=== PATIENT | male | born 1965 | race Caucasian/White ===

== ENCOUNTER 2020-02-08 12:23 | Emergency (ER) | payer MEDICAID, SELFPAY ==
[2020-02-08 12:25] VITALS: BP 137/86; PULSE 84; RESP 19; TEMP 36.4; O2SAT 98; BMI 37.5
--- NOTE | 2020-02-08 14:30 | ED.GENADULT ---
HPI - General Adult General Chief complaint: Extremity Problem Stated complaint: finger tips swollen and lt foot Time Seen by Provider: 02/08/20 14:30 Source: patient Mode of arrival: ambulatory Limitations: no limitations History of Present Illness MD complaint: bilateral finger pain,deformity, bump in left foot Onset (ago): month(s) (few months) Location: left, right, upper extremity and lower extremity Radiation: non-radiation Severity: moderate Quality: aching Pain Consistency: constant Relieving factors: none Exacerbating factors: none Associated symptoms: denies other symptoms Treatments prior to arrival: none Related Data Previous Rx's Medication Instructions Recorded cyclobenzaprine 10 mg PO TID PRN #14 tab 02/08/20 ibuprofen 600 mg PO Q6H PRN #30 tab 02/08/20 prednisone 40 mg PO DAILY 5 Days #10 tab 02/08/20 Allergies Allergy/AdvReac Type Severity Reaction Status Date / Time amoxicillin [AMOXICILLIN] Allergy Unknown HIVES Unverified 12/22/19 15:26 Review of Systems Review of Systems: Constitutional : No Fever, No Chills ENT/Mouth : No sore throat, No Rhinorrhea Eyes: No Eye Pain, No Swelling, No Redness Cardiovascular : No Chest Pain, No SOB Respiratory : No Cough, No Sputum Gastrointestinal : No Nausea, No Vomiting, No Diarrhea, No abdominal Pain Genitourinary : No Dysuria, No Hematuria Musculoskeletal : pos joint pain, No Myalgias, No Joint Swelling, pain swelling bottom of left foot Skin : No Skin Lesions, no skin rash Neuro : No Weakness, No Numbness, No Headache PMFSH Past Medical History Medical History HTN (hypertension) PTSD (post-traumatic stress disorder) Social History Social History (Updated 02/08/20 @ 14:31 by Anju Kevin DO) Use of substances other than those prescribed or required for medical reasons: No Advance Directives: Yes Advance Directives Information Provided: Yes Advance Directives on File: No Physical Exam Vital Signs: Vital Signs: Vital Signs Temp Pulse Resp BP Pulse Ox 02/08/20 12:25 97.6 F 84 19 137/86 98 Body Mass Index 37.5 Appearance: Alert. Oriented X3. No acute distress. Eyes: Pupils equal, round and reactive to light. ENT: Pharynx normal. Neck: Normal inspection. Neck supple. CVS: Normal heart rate and rhythm. Pulses normal. Respiratory: No respiratory distress. Breath sounds normal. Abdomen: Soft and nontender. Skin: Skin warm and dry. Normal skin color. Normal skin turgor. Extremities: No lower extremity edema. No calf ttp ulnar deviation of fingers, swelling mild but not red or warm on MCPs looks like arthritis - NV intact, L foot plantar surface mobile soft cystic feeling bump under first MTP no overlying swelling or skin changes Neuro: Oriented X 3. No motor deficit. No sensory deficit. Medical Decision Making MDM Narrative Medical decision making narrative: 54 yo male with multiple complaints including chronic hand pain consistent with arthritis - PCP has not called him back will start on anti inflammatories, does not appear infectious, also c/o LLE foot pain ?cyst - has been going on for months - xray ordered will refer to ortho and rheum Discharge Plan Discharge Clinical Impression: Arthritis, Cyst Patient Disposition: Home, Self-Care Instructions: Cyst (ED), Arthritis (ED) Additional Instructions: return to ED for any worsening symptoms or concerns Prescriptions: New cyclobenzaprine 10 mg tablet 10 mg PO TID PRN (Reason: muscle spasm) Qty: 14 RF: 0 prednisone 20 mg tablet 40 mg PO DAILY 5 Days Qty: 10 RF: 0 ibuprofen 600 mg tablet 600 mg PO Q6H PRN (Reason: pain) Qty: 30 RF: 0 Referrals: Abida Shine MD [Physician] - 1 week Jean Judd PA-C [Physician Industrial Relations Worker] - 1 week (lesion on foot) Stand Alone Forms: Work/School Release
--- NOTE | 2020-02-08 14:31 | XR_ITS ---
EXAMINATION: XR FOOT, LEFT CLINICAL INFORMATION: bump felt on plantar surface near 1st MTP COMPARISON: None TECHNIQUE: AP, lateral, and oblique views of the left foot. FINDINGS: No specific radiographic abnormality including the area of clinical concern near the first MTP joint. No focal bone lesion or abnormal periosteal reaction. No soft tissue mass or soft tissue calcification . Joint spaces are normal. There is no plantar calcaneal spur. XR/XR foot LT min 3V IMPRESSION: Normal left foot.
== END 2020-02-08 15:50 | disposition home or self-care (01) ==
PROVIDERS: Emergency Provider Emergency Medicine
DX: M79.672 Pain in left foot (principal); M19.042 Primary osteoarthritis, left hand; M19.041 Primary osteoarthritis, right hand; L72.8 Other follicular cysts of the skin and subcutaneous tissue; M79.645 Pain in left finger(s); M79.644 Pain in right finger(s); Z79.899 Other long term (current) drug therapy
CPT/HCPCS: 73630; 99283; 99284

== ENCOUNTER 2020-07-17 13:37 | Outpatient (REF) | payer MEDICAID, SELFPAY ==
[2020-07-17 13:54] LABS: COVID-19 Test Negative (Negative)
== END 2020-07-17 13:38 | disposition home or self-care (01) ==
LOC: HO.LAB 13:37
PROVIDERS: Visit Provider Internal Medicine
DX: Z20.822 Contact with and (suspected) exposure to COVID-19 (principal)
CPT/HCPCS: 36415; 87635; C9803

== ENCOUNTER 2021-01-02 11:08 | Emergency (ER) | payer MEDICAID, SELFPAY ==
[2021-01-02 11:45] VITALS: BP 142/91; PULSE 79; RESP 18; TEMP 36.7; O2SAT 96; BMI 35.2
--- NOTE | 2021-01-02 11:53 | ED.GENADULT ---
HPI - General Adult General Chief complaint: Wound/Laceration Stated complaint: rt leg lac Time Seen by Provider: 01/02/21 11:52 Source: patient Limitations: no limitations History of Present Illness HPI narrative: Patient presents with a laceration to the right lower calf. Patient was cut by a piece of metal that he was grabbing for today. Patient states his tetanus shot is up-to-date. Bleeding was controlled with pressure. just wanted him to be checked out he states. No other complaints at this time. Patient denies any pain fever chills shortness of breath. Related Data Previous Rx's Medication Instructions Recorded cyclobenzaprine 10 mg tablet 10 mg PO TID PRN #14 tab 02/08/20 ibuprofen 600 mg tablet 600 mg PO Q6H PRN #30 tab 02/08/20 prednisone 20 mg tablet 40 mg PO DAILY 5 Days #10 tab 02/08/20 Allergies Allergy/AdvReac Type Severity Reaction Status Date / Time amoxicillin [AMOXICILLIN] Allergy Unknown HIVES Unverified 12/22/19 15:26 Review of Systems Constitutional: Constitutional: Denies chills and Denies fever(s) Cardiovascular: Cardiovascular: Denies chest pain and Denies dyspnea Respiratory: Respiratory: Denies cough and Denies dyspnea Gastrointestinal: Gastrointestinal: Denies nausea and Denies vomiting Musculoskeletal: Comments: Right leg laceration PMFSH Past Medical History Attestation statement: The following information was validated with the patient. Medical History HTN (hypertension) PTSD (post-traumatic stress disorder) Social History Social History Advance Directives: No Advance Directives Information Provided: Yes Physical Exam Vital Signs: Vital Signs: Last Vital Signs Temp 98.1 F 01/02/21 11:45 Pulse 79 01/02/21 11:45 Resp 18 01/02/21 11:45 BP 142/91 H 01/02/21 11:45 Pulse Ox 96 01/02/21 11:45 Body Mass Index 35.2 vital signs have been reviewed as normal and appeared to be correct. Blood pressure normal. Heart rate normal. Respiration rate normal. Temperature normal. Oxygen saturation normal. Appearance: Alert. Oriented X3. No acute distress. Head: Normal external exam. Normocephalic. Atraumatic. Eyes: PERRLA. EOMI. ENT: Pharynx normal. Uvula midline. CVS: Heart regular rate and rhythm no murmurs and rubs Respiratory: Breath sounds are clear to auscultation bilaterally. No accessory muscle use noted. Skin: Right lateral calf approximately 4-5 cm superficial laceration well approximated bleeding controlled with dressing no active bleeding at this time. Minimal to no tenderness. Sensations intact pulses intact distally Extremities: No lower extremity edema. Extremities exhibit normal range of motion. Extremities nontender. Neuro: Oriented X 3. No motor deficit. No sensory deficit. No focal deficit. Course Course Course Narrative: Right lower extremity abrasion Right lower extremity laceration Right lower extremity contusion Patient has approximately 4-5 cm superficial laceration to the right lateral calf. Wound is well-approximated patient had clean wound copiously before arriving to the ER. Patient states his tetanus shot is also up-to-date. Wound cleaned with Betadine saline copiously wound is well-approximated Steri-Strips applied tolerated well wound dressed with Dominik wrap for some slight pressure at this time follow-up is needed. Discharge Plan Discharge Clinical Impression: Abrasion, Laceration Patient Disposition: Home, Self-Care Instructions: Abrasion (ED) Additional Instructions: Keep dressing on Steri-Strips will fall off on their own Keep wound clean and dry Return if symptoms worsen Prescriptions: No Action cyclobenzaprine 10 mg tablet 10 mg PO TID PRN (Reason: muscle spasm) Qty: 14 RF: 0 prednisone 20 mg tablet 40 mg PO DAILY 5 Days Qty: 10 RF: 0 ibuprofen 600 mg tablet 600 mg PO Q6H PRN (Reason: pain) Qty: 30 RF: 0
== END 2021-01-02 12:17 | disposition home or self-care (01) ==
PROVIDERS: Emergency Provider Emergency Medicine Emergency Medical Services
DX: S81.811A Laceration without foreign body, right lower leg, initial encounter (principal); S80.811A Abrasion, right lower leg, initial encounter; W26.9XXA Contact with unspecified sharp object(s), initial encounter; Y93.9 Activity, unspecified; Y92.9 Unspecified place or not applicable; Y99.9 Unspecified external cause status
CPT/HCPCS: 12002; 99283

== ENCOUNTER 2021-01-11 10:49 | Emergency (ER) | payer MEDICAID, SELFPAY ==
[2021-01-11 10:57] VITALS: BP 146/89; PULSE 78; RESP 19; TEMP 36.7; O2SAT 96; BMI 37.3
--- NOTE | 2021-01-11 11:18 | ED_ITS ---
HPI - Wound/Laceration General Chief Complaint: Wound/Laceration Stated Complaint: laceration rt calf Time Seen by Provider: 01/11/21 10:59 Source: patient Mode of arrival: ambulatory Limitations: no limitations History of Present Illness HPI narrative: 55 yo male here with redness, swelling and discomfort to wound on right lower extremity. Patient tells me he was seen here 01/02 after suffering a laceration to his right calf from sheet metal. Had steri strips placed. Returns today with concern for infection. No fevers, chills. Has not removed the steri strips since then were placed. Related Data Previous Rx's Medication Instructions Recorded cyclobenzaprine 10 mg tablet 10 mg PO TID PRN #14 tab 02/08/20 ibuprofen 600 mg tablet 600 mg PO Q6H PRN #30 tab 02/08/20 prednisone 20 mg tablet 40 mg PO DAILY 5 Days #10 tab 02/08/20 doxycycline monohydrate 100 mg 100 mg PO BID #20 tab 01/11/21 tablet Allergies Allergy/AdvReac Type Severity Reaction Status Date / Time amoxicillin [AMOXICILLIN] Allergy Unknown HIVES Unverified 12/22/19 15:26 Review of Systems Review of Systems: Yes all other systems are reviewed and are negative Constitutional: Constitutional: Reports no additional constitutional complaints, Denies body ache(s), Denies chills, Denies fever(s), Denies headache(s) and Denies weakness Eyes: Eyes: Reports no additional eye complaints and Denies change in vision ENT: Reports system reviewed and no additional complaints, except as documented, Denies dizziness, Denies headache(s), Denies nasal congestion, Denies nasal discharge and Denies neck pain Cardiovascular: Cardiovascular: Reports no additional cardiovascular complaints, Denies chest pain, Denies leg edema and Denies dyspnea Respiratory: Respiratory: Reports no additional respiratory complaints, Denies cough and Denies dyspnea Gastrointestinal: Gastrointestinal: Reports no additional gastrointestinal complaints, Denies abdominal pain, Denies diarrhea, Denies nausea and Denies vomiting Genitourinary: Genitourinary: Denies urinary incontinence Musculoskeletal: Musculoskeletal: Reports no additional musculoskeletal complaints, Denies back pain, Denies arthralgias, Denies joint swelling, Denies neck pain, Denies numbness and Denies tingling Integumentary/Breasts: Skin/Breast: Reports system reviewed and no additional complaints, except as docu, Reports swelling, Reports erythema and Denies rash Neurologic: Reports system reviewed and no additional complaints, except as documented, Denies Abnormal speech present, Denies dizziness, Denies heada alo(s), Denies numbness, Denies tingling and Denies weakness PMFSH Past Medical History Attestation statement: The following information was validated with the patient. Source: old records reviewed and nursing notes reviewed Medical History HTN (hypertension) PTSD (post-traumatic stress disorder) Social History Social History Advance Directives: No Physical Exam Vital Signs: Vital Signs: Last Vital Signs Temp 98.1 F 01/11/21 10:57 Pulse 78 01/11/21 10:57 Resp 19 01/11/21 10:57 BP 146/89 H 01/11/21 10:57 Pulse Ox 96 01/11/21 10:57 Body Mass Index 37.3 Const: General: cooperative, healthy appearing, comfortable and no acute distress Orientation/consciousness: patient oriented x3 Limitations: no limitations HENMT: Head: Yes normal to inspection Ears: hearing grossly normal bilaterally General nose exam: Normal external nose present Face and sinus: Yes normal facial exam Mouth: Normal oral and palatal mucosa present Throat: Yes posterior oropharynx normal Eyes: General: appearance normal, both eyes and all related structures Pup ils: Equal, round and reactive pupils present Neck: Neck: Yes normal visual inspection Chest: Chest palpation & inspection: normal inspection of the chest Resp: Effort & Inspection: normal respiratory effort Auscultation: clear to auscultation bilaterally Cardio: Rate: regular rate Rhythm: regular rhythm Peripheral pulses: Peripheral pulses 2+ throughout GI: Inspection: Yes normal to inspection Palpation (GI): Soft to palpation and nontender Auscultation: normal bowel sounds Back/Spine/Pelvis: Thoracic/Lumbar Spine: thoracic and lumbar spine normal to inspection Skin: General skin exam: no rashes or lesions noted Neuro: General: patient oriented x3, no focal motor deficits and normal sensation to monofilament Cranial nerves: Yes Equal, round and reactive pupils present Cognition (Neuro): normal cognition Speech: No Abnormal speech present Gait exam (Neuro): Normal gait present Motor exam (neuro): 5/5 motor strength present throughout Extrem: Other: to the lateral aspect of the right calf there is 5cm healing laceration with approximated edges-local erythema, swelling and tenderness. no drainage, fluctuance or palpable abscess General: Yes normal to inspection Course Course Course Narrative: Healing laceration with local swelling, redness and tenderness. Steri strips were removed. Wound cleansed with NS and hydrogen peroxide. Topical antibiotic ointment applied with non stick dressing and wrap. Will start patient on oral antibiotics x7 days for local infection. Low concern for systemic infection with no fever, patient non toxic appearing. Reviewed worrisome signs/symptoms with patient and when to return to ED. Comfortable with discharge home. MDM - Wound/Laceration Differential Diagnosis Differential diagnosis: Likely laceration Medical Records Attestation: I reviewed the patient's medical records. Lab Data Attestation: I reviewed the patient's lab results. Discharge Plan Discharge Clinical Impression: Infected wound Patient Disposition: Home, Self-Care Instructions: Wound Infection (ED) Additional Instructions: wash daily with soap and water Prescriptions: New doxycycline monohydrate 100 mg tablet 100 mg PO BID Qty: 20 RF: 0 No Action cyclobenzaprine 10 mg tablet 10 mg PO TID PRN (Reason: muscle spasm) Qty: 14 RF: 0 prednisone 20 mg tablet 40 mg PO DAILY 5 Days Qty: 10 RF: 0 ibuprofen 600 mg tablet 600 mg PO Q6H PRN (Reason: pain) Qty: 30 RF: 0 Referrals: [facility] [Primary Care Provider] - 2 days Interventions: ED Discharge Assessment Last Done: 01/11/21 11:16 Discharge Date/Time: 01/11/21 11:16
== END 2021-01-11 11:16 | disposition home or self-care (01) ==
PROVIDERS: Emergency Provider Emergency Medicine Emergency Medical Services
DX: S81.811D Laceration without foreign body, right lower leg, subsequent encounter (principal); L08.9 Local infection of the skin and subcutaneous tissue, unspecified; W26.8XXD Contact with other sharp object(s), not elsewhere classified, subsequent encounter; I10 Essential (primary) hypertension
CPT/HCPCS: 99283

== ENCOUNTER 2021-04-23 12:16 | Emergency (ER) | payer MEDICARE, MEDICAID, SELFPAY ==
[2021-04-23 13:03] VITALS: PULSE 78; RESP 19; TEMP 36.6; O2SAT 99; BMI 36.0
[2021-04-23 14:16] LABS: COVID-19 Test Negative (Negative)
--- NOTE | 2021-04-23 14:49 | ED_ITS ---
HPI - Wound/Laceration General Chief Complaint: Wound/Laceration Stated Complaint: finger lac Time Seen by Provider: 04/23/21 14:22 Source: patient Mode of arrival: ambulatory Limitations: no limitations History of Present Illness HPI narrative: 55-year-old male came in for evaluation of right thumb laceration. Patient cut his right thumb in razor, Patient is right handed, patient is not taking any blood thinner, not up to date on his tetanus shot. is positive for COVID patient has no symptoms requesting testing. Related Data Previous Rx's Medication Instructions Recorded cyclobenzaprine 10 mg tablet 10 mg PO TID PRN #14 tab 02/08/20 ibuprofen 600 mg tablet 600 mg PO Q6H PRN #30 tab 02/08/20 prednisone 20 mg tablet 40 mg PO DAILY 5 Days #10 tab 02/08/20 doxycycline monohydrate 100 mg 100 mg PO BID #20 tab 01/11/21 tablet Allergies Allergy/AdvReac Type Severity Reaction Status Date / Time amoxicillin [AMOXICILLIN] Allergy Unknown HIVES Unverified 12/22/19 15:26 Review of Systems Review of Systems: All other systems are reviewed and are negative Constitutional: Reports as per HPI and Reports no additional constitutional complaints Eyes: Reports as per HPI and Reports no additional eye complaints Reports system reviewed and no additional complaints, except as documented Cardiovascular: Reports as per HPI and Reports no additional cardiovascular complaints Respiratory: Reports as per HPI and Reports no additional respiratory complaints Gastrointestinal: Reports as per HPI and Reports no additional gastrointestinal complaints Genitourinary: Reports no additional female genitourinary complaints Musculoskeletal: Reports no additional musculoskeletal complaints Skin/Breast: Reports system reviewed and no additional complaints, except as docu Psychiatric: Reports no additional psychiatric complaints Endocrine: Reports no additional endocrine complaints Hematologic/Lymphatic: Reports no additional hematologic/lymphatic complaints Allergic/Immunologic: Reports no additional allergic/immunologic complaints Reports system reviewed and no additional complaints, except as documented and Reports Abnormal speech present [facility] Past Medical History Medical History HTN (hypertension) PTSD (post-traumatic stress disorder) Social History Social History Advance Directives: No Advance Directives Information Provided: No Physical Exam Vital Signs: Vital Signs: Last Vital Signs Temp 98 F 04/23/21 13:03 Pulse 78 01/18/22 13:03 Resp 19 04/23/21 13:03 Pulse Ox 99 04/23/21 13:03 BMI result Body Mass Index 36.0 Vital signs have been reviewed as appeared to be correct. Blood pressure normal. Heart rate normal. Respiration rate normal. Temperature normal. Oxygen saturation normal. Appearance: Alert. Oriented X3. No acute distress. Head: Normal external exam. Normocephalic. Atraumatic. No Montero signs noted. No raccoon eyes noted Eyes: PERRLA. EOMI. Conjunctiva and sclera normal. Eyelids normal. ENT: TM's Normal. Pharynx normal. Uvula midline. Moist mucous membranes. No trismus noted. No drooling noted. No muffled voice noted. Neck: Normal inspection. Neck supple. FROM. No adenopathy. Thyroid Normal. No meningeal signs. No neck mass noted. CVS: Normal heart rate and rhythm. Heart sound normal. No murmurs noted. Pulses normal throughout. Respiratory: No respiratory distress. Painless inspiration. Breath sounds normal. No wheezes/rales/rhonchi noted. Chest nontender. No accessory muscle usage noted or decreased air movement noted. Abdomen: Soft and nontender. Bowel sounds normal in all 4 quadrants. No distention noted. No organomegaly noted. No visible injury noted. Back: No CVA tenderness. Full range of motion noted. Skin: Skin warm and dry. Normal skin color. Normal skin turgor. No rashes/lesions/lacerations noted. Extremities: Right hand exam: 2 cm superficial laceration on right thumb, no active bleeding. Neuro: Oriented X 3. Cranial nerve exam: II-XII are grossly intact No motor deficit. No sensory deficit. Reflexes normal. Course Course Course Narrative: Assessment and plan. 55-year-old male came in with a right thumb laceration that was repaired with Dermabond skin adhesive. Patient also tested negative for COVID today. Will update patient with tetanus shot. MDM - Wound/Laceration Lab Data Labs: Lab Results 04/23/21 Range/Units 13:48 COVID-19 ([facility]) Negative (Negative) COVID-19 Clin Com See Note Procedures Laceration Laceration 1: Side (If applicable): right (Right thumb) Size (cm): 1 Description: linear Depth: simple, single layer Size (cm): other (Dermabond) Discharge Plan Discharge Clinical Impression: Laceration Patient Disposition: Home, Self-Care Instructions: Finger Laceration (ED) Prescriptions: No Action cyclobenzaprine 10 mg tablet 10 mg PO TID PRN (Reason: muscle spasm) Qty: 14 RF: 0 prednisone 20 mg tablet 40 mg PO DAILY 5 Days Qty: 10 RF: 0 ibuprofen 600 mg tablet 600 mg PO Q6H PRN (Reason: pain) Qty: 30 RF: 0 doxycycline monohydrate 100 mg tablet 100 mg PO BID Qty: 20 RF: 0 Referrals: Physician,Unknown J [Primary Care Provider] - 2 days
[2021-04-23] MEDS: Diphth,Pertus(ACell),Tet Adult 0.5 ML SYRINGE IM (14:53)
== END 2021-04-23 15:01 | disposition home or self-care (01) ==
PROVIDERS: Emergency Provider Emergency Medicine
DX: S61.011A Laceration without foreign body of right thumb without damage to nail, initial encounter (principal); W27.8XXA Contact with other nonpowered hand tool, initial encounter; Z20.822 Contact with and (suspected) exposure to COVID-19; Y93.9 Activity, unspecified; Y92.019 Unspecified place in single-family (private) house as the place of occurrence of the external cause; Y99.9 Unspecified external cause status
CPT/HCPCS: 12001; 87635; 90471; 90715; 99283; 99284

== ENCOUNTER 2021-04-25 10:33 | Emergency (ER) | payer MEDICAID, SELFPAY ==
--- NOTE | ~2021-04-25 | CT_ITS ---
EXAMINATION: CT CERVICAL SPINE WITHOUT CONTRAST CLINICAL INFORMATION: Fall, trauma, pain COMPARISON: CT had 04/25/2021 TECHNIQUE: Multidetector volumetric CT imaging of the cervical spine is performed without contrast in the axial plane. Additional 2D reformatted coronal and sagittal images are generated on the CT workstation and uploaded to PACS. This CT examination was performed using dose optimization techniques as appropriate, variously including the following: *Automated exposure control *Adjustment of mA and/or kV according to patient size (this includes techniques or standardized protocols for targeted exams where dose is matched to indication/reason for exam; i.e. extremities or head) *Use of iterative reconstruction technique DLP: 723 mGy-cm FINDINGS: There is no vertebral compression fracture, fracture line, spondylolisthesis, or prevertebral soft tissue swelling. The craniocervical junction appears normal. The odontoid appears intact. There is mild reversal cervical lordosis and dextrocurvature which may be related to muscle spasm. 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 There are multilevel degenerative disc changes. Disc narrowing greatest at C5-C6 and C6-C7. There is associated vertebral spurring. Mild multilevel facet degeneration also present. No perched facet. There is no apical pneumothorax. CT/CT cervical spine wo con IMPRESSION: 1. No acute bony abnormality or prevertebral soft tissue swelling. 2. Multilevel degenerative disc and degenerative facet changes. 3. Mild reversal cervical lordosis with dextrocurvature likely related to muscle spasm.
--- NOTE | ~2021-04-25 | MR_ITS ---
EXAMINATION: MR BRAIN WITHOUT AND WITH CONTRAST CLINICAL INFORMATION: Fall. Loss of consciousness. COMPARISON: CT head from 04/25/2019. TECHNIQUE: MRI of the brain was obtained using routine sequences without and following the administration of 10 mL of Gadavist intravenous contrast. FINDINGS: There is a small developmental venous anomaly within the medial aspect of the right thalamus. There is faint, amorphous susceptibility artifact and potential contrast enhancement adjacent to this DVA. Minimal T2 FLAIR hyperintensity in this region. No surrounding significant cerebral edema. No focal restricted diffusion is demonstrated to suggest acute or subacute cerebral ischemia. No evidence of acute or chronic hemorrhagic products on heme-sensitive imaging. No additional parietal signal abnormalities. The ventricles are normal in morphology and size. No abnormal mass effect. No midline shift. Normal appearance of the pituitary gland. The suprasellar cistern remains widely patent. Normal positioning of the cerebellar tonsils. Normal arterial and venous vascular flow voids are present. No abnormal contrast enhancement. Normal, homogeneous marrow signal. Moderate degenerative spondyloarthropathy of the visualized cervical spine. Mild mucosal thickening of the paranasal sinuses. No signal abnormalities within the mastoids. MR/MR head/brain wo/w con IMPRESSION: 1. No acute intracranial abnormalities. 2. Small developmental venous anomaly within the medial aspect of the right thalamus. There is faint susceptibility artifact in the region of previously demonstrated CT hyperattenuation adjacent to this DVA, potentially representing early dystrophic calcification. No suspicious cerebral edema to suggest acute hemorrhage. 3. No additional abnormal intracranial enhancement.
--- NOTE | ~2021-04-25 | CT_ITS ---
EXAMINATION: CT HEAD WITHOUT CONTRAST CLINICAL INFORMATION: Fall, trauma, loss of consciousness COMPARISON: None TECHNIQUE: Contiguous axial imaging was performed from the skull base to vertex without intravenous administration of contrast. Additional 2-D coronal and sagittal reformatted images are generated on the CT workstation and uploaded to PACS. This CT examination was performed using dose optimization techniques as appropriate, variously including the following: *Automated exposure control *Adjustment of mA and/or kV according to patient size (this includes techniques or standardized protocols for targeted exams where dose is matched to indication/reason for exam; i.e. extremities or head) *Use of iterative reconstruction technique DLP: 768 mGy-cm FINDINGS: There is focal high attenuation within the right thalamus measuring approximately 0.6 cm in size and 80 HU attenuation. There is no surrounding edema. Finding may represent cavernous angioma. Petechial hemorrhage is less likely. Recommend MR brain without and with gadolinium for further assessment. The remainder the brain is unremarkable with no intracranial lesion, hemorrhage, hematoma, or extra-axial fluid collection. The ventricles are normal in size. There is no hydrocephalus, edema, or mass effect. The hilton-white matter differentiation appears well preserved. The calvarium appears intact. There is no pneumocephalus or orbital emphysema. The visualized sinuses and middle ears and mastoid air cells show no significant mucosal thickening. There are no air-fluid levels. Results and recommendation called to emergency department, Toyin Ni PA-C at [address]/CT head/brain wo con IMPRESSION: Focal high attenuation lesion within right thalamus 0.6 cm without surrounding edema. 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 Petechial hemorrhage less likely. Recommend MR brain without and with gadolinium for further assessment.
[2021-04-25 10:42] VITALS: BP 145/91; PULSE 77; RESP 18; O2SAT 95; BMI 36.0
--- NOTE | 2021-04-25 11:24 | ED.FALL ---
HPI - Fall General Chief Complaint: Fall Stated Complaint: Fall/dizzy Time Seen by Provider: 04/25/21 11:24 Source: patient Mode of arrival: ambulatory Limitations: no limitations History of Present Illness HPI Narrative: This is a 55-year-old male pmhx hypertension presenting to the emergency department with complaints of dizziness , neck pain and headache status post fall earlier today. Patient tells me that he was walking out of his house, did not see the ice, slipped forward, hitting his forehead on ice and loosing consciousness for a few seconds, unwitnessed. He tells me he had no preceding symptoms he denies chest pain,diphoresis, vision changes, or dizziness prior to the fall. He also tells me that he is experiencing some neck pain after falling. He denies vision changes but tells me that he feels ?foggy ?. At this time he denies nausea, vomiting, chest pain, shortness of breath, fevers, chills, abdominal pain. Not on blood thinners MD complaint: fall Onset (ago): hour(s) (2) Fall from: standing Fall witnessed: no Place fall occurred: home Loss of consciousness: yes Length of LOC: second(s) Prolonged down time: no Symptoms prior to fall: none Context: tripped/slipped (slipped on ice ) Location of injury: head Quality: throbbing Associated symptoms (after fall): headache and neck pain Related Data Previous Rx's Medication Instructions Recorded cyclobenzaprine 10 mg tablet 10 mg PO TID PRN #14 tab 02/08/20 ibuprofen 600 mg tablet 600 mg PO Q6H PRN #30 tab 02/08/20 prednisone 20 mg tablet 40 mg PO DAILY 5 Days #10 tab 02/08/20 doxycycline monohydrate 100 mg 100 mg PO BID #20 tab 01/11/21 tablet cyclobenzaprine 10 mg tablet 10 mg PO BEDTIME PRN #7 tab 04/25/21 lidocaine 5 % topical patch 1 patch TOPICAL DAILY PRN #15 ea 04/25/21 naproxen 500 mg tablet 500 mg PO BID PRN #14 tab 04/25/21 Allergies Allergy/AdvReac Type Severity Reaction Status Date / Time amoxicillin [AMOXICILLIN] Allergy Unknown HIVES Verified 04/25/21 10:45 Review of Systems Review of Systems: Constitutional : No Weight loss, No Fever, No Chills, No Fatigue, No Malaise ENT/Mouth : No sore throat, No Rhinorrhea Eyes: No Eye Pain, No Swelling, No Redness Cardiovascular : No Chest Pain, No SOB, No Dyspnea on Exertion, No Orthopnea, No Edema, No Palpitations Respiratory : No Cough, No Sputum, No Wheezing Gastrointestinal : No Nausea, No Vomiting, No Diarrhea, No Constipation, No abdominal Pain, No Hematochezia, No Melena Genitourinary : No Dysuria, No Urinary Frequency, No Hematuria, Musculoskeletal : No joint pain, No Myalgias, No Joint Swelling Skin : No Skin Lesions, No rash Neuro : No Weakness, No Numbness, + Dizziness, + Headache Psych : No Anxiety/Panic, No Depression All other systems reviewed and are negative Yes all other systems are reviewed and are negative [facility] Past Medical History Attestation statement: The following information was validated with the patient. Source: old records reviewed and nursing notes reviewed Medical History HTN (hypertension) PTSD (post-traumatic stress disorder) Social History Social History Smoked in Last 30 Days: No Use of substances other than those prescribed or required for medical reasons: Yes Substance Use Type: Marijuana Advance Directives: No Advance Directives Information Provided: No Physical Exam Vital Signs: Vital Signs: Last Vital Signs Pulse 72 04/25/21 12:15 Resp 16 04/25/21 12:15 BP 132/90 H 04/25/21 12:15 Pulse Ox 96 04/25/21 12:15 BMI result Body Mass Index 36.0 VSS Appearance: Alert.? Oriented X3.? No acute distress.? Head: Normocephalic, atraumatic, no step-offs or deformities Eyes: Pupils equal, round and reactive to light.? ENT: Pharynx normal.? Neck: Normal inspection.? Neck supple.? CVS: Normal heart rate and rhythm.? Pulses normal.? Respiratory: No respiratory distress.? Breath sounds normal.? Abdomen: Soft and nontender.? Skin: Skin warm and dry.? Normal skin color.? Normal skin turgor.?+ small abrasion on the left side of forehead Extremities: No lower extremity edema.? No calf ttp. 5/5 strength to bilateral upper and lower extremities Back: No midline tenderness, no C-spine tenderness, full range of motion, no CVA tenderness bilaterally + discomfort w/ palpation of paraspinous muscles in the cervical and thoracic region Neuro: Oriented X 3.? No motor deficit.? No sensory deficit. Course Reevaluation(s) Reevaluation #1: Due to the results from CT scan, and MRI of the head with and without contrast have been ordered at this time. Time: 14:06 Reevaluation #2: MRI of the brain with no hemorrhage. It does show small a small developmental venous anomaly within the medial aspect of the right thalamus. No stroke or ICH. MRI report discused with At this time patient will be discharged home likely concussion secondary to fall. I have advised him to return to the emergency department with new or worsening symptoms. I have given him strict return precautions and have outlined these in his discharge. Time: 16:59 MDM - Fall MDM Narrative Medical decision making narrative: 1131 55-year-old male pmhx HTN presenting w/ complaints of dizziness, neck pain and headache s/p slip & fall on ice earlier today. Physical exam small abrasion on the left side of the forehead. Pupils equal round and reactive to light. Lungs clear. Regular rate and rhythm. Abdomen soft nontender nondistended. Reports tenderness to palpation of paraspinous muscles in the cervical and thoracic region. Neuro exam nonfocal Plan at this time is to obtain a CT of the head and brain, cervical spine. Cardiac monitoring an EKG. Will rule out fractures/ICH Medical Records Attestation: I reviewed the patient's medical records. Lab Data Attestation: I reviewed the patient's lab results. Result diagrams: 04/25/21 14:23 04/25/21 14:23 Labs: Lab Results 04/25/21 04/25/21 Range/Units 14:23 14:23 WBC 8.0 (4.8-10.8) X10*3/uL RBC 5.80 (4.60-5.80) X10*6/uL Hgb 17.1 (14.0-18.0) g/dl Hct 51.4 (42.0-52.0) % MCV 88.6 (80.0-98.0) fL MCH 29.5 (27.0-33.0) pg MCHC 33.3 (31.0-36.0) g/dl RDW 12.6 (11.0-16.0) % Plt Count 242 (160-400) X10*3/uL MPV 9.3 L (9.4-12.4) fL Immature Gran % (Auto) 1.1 H (0.0-0.4) % Neut % (Auto) 45.4 (45-73) % Lymph % (Auto) 38.1 (20-40) % [place] % (Auto) 8.2 (2-11) % Eos % (Auto) 6.2 H (0-4) % Baso % (Auto) 1.0 (0-2) % Lymph # (Auto) 3.0 (1.2-4.9) X10*3/uL [place] # (Auto) 0.7 (0.1-1.2) X10*3/uL Eos # (Auto) 0.5 H (0.0-0.4) X10*3/uL Baso # (Auto) 0.1 (0.0-0.2) X10*3/uL Abs Immat Gran (auto) 0.09 H (0.00-0.03) X10*3/uL Absolute Neuts (auto) 3.6 (2.0-8.3) x10*3/uL Absolute Nucleated RBC 0.000 (0.0-0.012) X10*3/uL Nucleated RBC % (auto) 0.0 (0.0-0.2) /100WBC Sodium 143 (135-145) mmol/L Potassium 4.5 (3.3-5.1) mmol/L Chloride 109 H (96-108) mmol/L Carbon Dioxide 27 (22-29) mmol/L Anion Gap 12 (12-20) BUN 15 (9-16) mg/dL Creatinine 0.82 (0.5-1.4) mg/dL Estim Creat Clear Calc 118.5 Estimated GFR > 60 Random Glucose 102 (60-115) mg/dL Calcium 9.6 (8.4-10.2) mg/dL Total Bilirubin 0.7 (0.0-1.0) mg/dL AST 18 (5-37) U/L ALT 26 (0-40) U/L Alkaline Phosphatase 59 (39-117) U/L Total Protein 7.2 (6.5-8.0) g/dL Albumin 4.3 (3.5-5.0) g/dL Imaging Data CT scan - head: Attestation: I personally reviewed and interpreted this imaging study as follows: Radiologist's impression: CT/CT head/brain wo con IMPRESSION: Focal high attenuation lesion within right thalamus 0.6 cm without surrounding edema. 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 Petechial hemorrhage less likely. Recommend MR brain without and with gadolinium for further assessment. ? CT cervical spine : Attestation: I personally reviewed and interpreted this imaging study as follows: Radiologist's impression: CT/CT cervical spine wo con IMPRESSION: 1.? No acute bony abnormality or prevertebral soft tissue swelling. 2.? Multilevel degenerative disc and degenerative facet changes. 3.? Mild reversal cervical lordosis with dextrocurvature likely related to muscle spasm. ? ECG Data Attestation: I personally reviewed and interpreted this ECG as follows: ECG interpretation date: 04/25/21 ECG interpretation time: 12:20 Prior ECG tracings: available for review Interpretation: Ventricular rate of 69, OR normal, QRS normal, QT/QTC normal. EKG shows normal sinus rhythm. No ST elevations or inversions. No acute ischemia. No significant changes when compared with EKG from September 26, 2015. Critical Care Time Critical Care Time Critical Care Time: No Discharge Plan Discharge Clinical Impression: Fall due to slipping on ice or snow, Headache, Dizziness, Concussion Patient Disposition: Home, Self-Care Instructions: Acute Headache (ED), Dizziness (ED) Additional Instructions: Take your medications as prescribed. If you were prescribed antibiotics today, it is important that you take your medication to their entirety, do not skip any doses, do not finish them early. You CT scan showed no fractures or bleed in your head. Brain MRI did not show a stroke or bleed. Follow-up with your primary care provider this week. Return to the emergency department with new or worsening symptoms. Such as chest pain, shortness of breath, headache, vision changes, dizziness, nausea, vomiting, seizures, lethargy. In case of emergency call 911 I site use cyclobenzaprine a muscle relaxer. Please only take this at night as this can make you sleepy. Prescriptions: New cyclobenzaprine 10 mg tablet 10 mg PO BEDTIME PRN (Reason: muscle spasm) Qty: 7 RF: 0 lidocaine 5 % adhesive patch,medicated 1 patch topical DAILY PRN (Reason: pain) Qty: 15 RF: 0 naproxen 500 mg tablet 500 mg PO BID PRN (Reason: pain) Qty: 14 RF: 0 No Action cyclobenzaprine 10 mg tablet 10 mg PO TID PRN (Reason: muscle spasm) Qty: 14 RF: 0 prednisone 20 mg tablet 40 mg PO DAILY 5 Days Qty: 10 RF: 0 ibuprofen 600 mg tablet 600 mg PO Q6H PRN (Reason: pain) Qty: 30 RF: 0 doxycycline monohydrate 100 mg tablet 100 mg PO BID Qty: 20 RF: 0 Referrals: [facility] [Primary Care Provider] - 2 days Stand Alone Forms: Work/School Release
--- NOTE | 2021-04-25 11:29 | ECG_ITS ---
Test Reason : fall Blood Pressure : / mmHG Vent. Rate : 069 BPM Atrial Rate : 069 BPM P-R Int : 144 ms QRS Dur : 096 ms QT Int : 370 ms P-R-T Axes : 034 064 028 degrees QTc Int : 396 ms Normal sinus rhythm Normal ECG When compared with ECG of 26-SEP-2015 16:58, No significant change was found Referred By: Toyin Ni Electronically Signed By:Joesph Barone
[2021-04-25 12:15] VITALS: BP 132/90; PULSE 72; RESP 16; O2SAT 96
[2021-04-25 14:28] LABS: MANUAL DIFF FLAG NO
[2021-04-25 14:30] LABS: Basophils Absolute Auto 0.1 X10*3/uL (0.0-0.2); Eosinophils Absolute Auto 0.5 X10*3/uL (0.0-0.4); Eosinophils Percent Auto 6.2 % (0-4); Hematocrit 51.4 % (42.0-52.0); Hemoglobin 17.1 g/dl (14.0-18.0); Imm Gran Abs Auto 0.09 X10*3/uL (0.00-0.03); Imm Gran Pct Auto 1.1 % (0.0-0.4); Lymphocytes Percent Auto 38.1 % (20-40); Mean Corpuscular HGB Conc 33.3 g/dl (31.0-36.0); Mean Corpuscular Hemoglobin 29.5 pg (27.0-33.0); Mean Corpuscular Volume 88.6 fL (80.0-98.0); Mean Platelet Volume 9.3 fL (9.4-12.4); Monocytes Absolute Auto 0.7 X10*3/uL (0.1-1.2); Monocytes Percent Auto 8.2 % (2-11); Neutrophils Absolute Auto 3.6 x10*3/uL (2.0-8.3); Neutrophils Percent Auto 45.4 % (45-73); Platelet Count 242 X10*3/uL (160-400); Red Cell Distribution Width 12.6 % (11.0-16.0)
[2021-04-25 14:46] LABS: Alanine Aminotransferase 26 U/L (0-40); Albumin Level 4.3 g/dL (3.5-5.0); Alkaline Phosphatase 59 U/L (39-117); Anion Gap 12 (12-20); Aspartate Amino Transferase 18 U/L (5-37); Bilirubin Total 0.7 mg/dL (0.0-1.0); Blood Urea Nitrogen 15 mg/dL (9-16); Calcium 9.6 mg/dL (8.4-10.2); Carbon Dioxide 27 mmol/L (22-29); Chloride 109 mmol/L (96-108); Creatinine Clr Calc Pharmacy 118.5; Estimated Glomerular Filt Rate > 60; Glucose Random 102 mg/dL (60-115); Potassium 4.5 mmol/L (3.3-5.1); Sodium 143 mmol/L (135-145); Total Protein 7.2 g/dL (6.5-8.0)
[2021-04-25 17:05] VITALS: BP 151/88; PULSE 82; TEMP 36.4; O2SAT 96
== END 2021-04-25 17:14 | disposition home or self-care (01) ==
PROVIDERS: Physician Assistant; Emergency Provider Emergency Medicine Emergency Medical Services
DX: S06.0X1A Concussion with loss of consciousness of 30 minutes or less, initial encounter (principal); S00.81XA Abrasion of other part of head, initial encounter; W00.0XXA Fall on same level due to ice and snow, initial encounter; R51.9 Headache, unspecified; R42 Dizziness and giddiness; I10 Essential (primary) hypertension; Y93.01 Activity, walking, marching and hiking; Y92.017 Garden or yard in single-family (private) house as the place of occurrence of the external cause; Y99.9 Unspecified external cause status
CPT/HCPCS: 36415; 70450; 70553; 72125; 80053; 85025; 93005; 96374; 99284; 99285; A9585

== ENCOUNTER → 2021-08-07 13:02 | Outpatient (BNVA) | payer MEDICAID, SELFPAY | PROVIDERS: PCP Family Medicine; Referring Provider Family Medicine; Visit Provider Nurse Practitioner Family | DX: Z12.11 Encounter for screening for malignant neoplasm of colon (principal); R19.7 Diarrhea, unspecified | CPT/HCPCS: 99202 ==

== ENCOUNTER 2021-09-12 08:58 | Outpatient (REF) | payer MEDICAID, SELFPAY ==
--- NOTE | 2021-09-12 09:03 | EMG_ITS ---
Left median and ulnar motor and sensory studies were performed. Left radial and sensory studies were performed. Left median and lateral antecubital sensory studies were performed, and needle examination was done. IMPRESSION: 1. [id number] left median neuropathy across carpal tunnel. 2. Chronic left mid cervical radiculopathy. MD KIRSTY Eldridge/SO / [id number]
== END 2021-09-12 08:59 | disposition home or self-care (01) ==
LOC: HO.NEURO 08:58
PROVIDERS: Absent Provider Internal Medicine; PCP Internal Medicine; Visit Provider Family Medicine
DX: R20.0 Anesthesia of skin (principal)
CPT/HCPCS: 95886; 95910

== ENCOUNTER 2022-02-01 08:59 | Emergency (ER) | payer OTHER, SELFPAY ==
[2022-02-01 09:02] VITALS: BP 145/90; PULSE 78; RESP 18; TEMP 36.7; O2SAT 98; BMI 35.6
--- NOTE | 2022-02-01 09:23 | ED_ITS ---
HPI - Skin/Abscess/Foreign Bdy General Chief complaint: Skin/Abscess/Foreign Body Stated complaint: GROWTH ON BACK OF HEAD Time Seen by Provider: 02/01/22 09:07 Source: patient Mode of arrival: ambulatory Limitations: no limitations History of Present Illness HPI narrative: presented c/o redness post neck,painful area X 3 Days,no fever,no chills,denies hx of DM,he has hx of PTSD complaint: other (area of redness neck) Onset (ago): day(s) (3) Location: neck Severity: mild Quality: burning Pain Consistency: constant Relieving factors: none Exacerbating factors: none Context: none Related Data Home Medications Medication Instructions Recorded Confirmed fluvoxamine 100 mg tablet 100 mg PO BID 08/07/21 Previous Rx's Medication Instructions Recorded bisacodyl 5 mg tablet,delayed 10 mg PO ONCE 1 day #2 tabs 08/07/21 release (Dulcolax (bisacodyl)) polyethylene glycol 3350 17 238 g PO ONCE #238 grams 08/07/21 gram/dose oral powder (Miralax) naproxen 500 mg tablet (Naprosyn) 500 mg PO BID PRN PAIN #20 tabs 02/01/22 sulfamethoxazole 800 1 tab PO BID #14 tabs 02/01/22 mg-trimethoprim 160 mg tablet (Bactrim DS) Allergies Allergy/AdvReac Type Severity Reaction Status Date / Time amoxicillin [AMOXICILLIN] Allergy Unknown HIVES Verified 08/07/21 13:08 Review of Systems Constitutional: Constitutional: Reports no additional constitutional complaints, Denies chills and Denies fever(s) Eyes: Eyes: Reports no additional eye complaints Cardiovascular: Cardiovascular: Reports no additional cardiovascular complaints Gastrointestinal: Gastrointestinal: Reports no additional gastrointestinal complaints [facility] Past Medical History Medical History HTN (hypertension) PTSD (post-traumatic stress disorder) Social History Social History Substance Use Type: Marijuana Advance Directives: No Advance Directives Information Provided: Yes Physical Exam Vital Signs: Vital Signs: Last Vital Signs Temp 98.1 F 02/01/22 09:02 Pulse 78 02/01/22 09:02 Resp 18 02/01/22 09:02 BP 145/90 H 02/01/22 09:02 Pulse Ox 98 02/01/22 09:02 O2 Del Method 02/01/22 09:02 BMI result Body Mass Index 35.6 Const: Other: He looks well he has no toxic-appearing is sitting very comfortable in the stretcher afebrile General: cooperative Nutritional Appearance: average body habitus and well nourished Orientation/consciousness: patient oriented x3 Limitations: no limitations HEENT: Head: Yes normal to inspection General nose exam: Normal external nose present Face and sinus: Yes normal facial exam Mouth: Normal oral and palatal mucosa present Neck: Other: area of tenderness and redness right post neck 3x3 cm indurated no fluttuance Thyroid: Thyroid normal Chest: Chest palpation & inspection: normal inspection of the chest Resp: Effort & Inspection: normal respiratory effort Auscultation: clear to auscultation bilaterally Cardio: Jugular venous distension: no JVD Rate: regular rate GI: Inspection: Yes normal to inspection Palpation (GI): Soft to palpation, not firm, nontender and no guarding Percussion: Yes normal to percussion Skin: Other: as above in the neck exam Neuro: General: patient oriented x3 MDM - Skin/Abscess/Foreign Bdy MDM Narrative Medical decision making narrative: This is a 56 years old presented with the indurated are red are in the posterior neck him on my exam there is no fluttuance ,I do not think need I and D at this time Discharge Plan Discharge Clinical Impression: Cellulitis Patient Disposition: Home, Self-Care Instructions: Cellulitis (ED), Warm Compress or Soak (ED) Prescriptions: New naproxen [Naprosyn] 500 mg tablet 500 mg PO BID PRN (Reason: PAIN) Qty: 20 0RF sulfamethoxazole-trimethoprim [Bactrim DS] 800-160 mg tablet 1 tab PO BID Qty: 14 0RF No Action fluvoxamine 100 mg tablet 100 mg PO BID bisacodyl [Dulcolax (bisacodyl)] 5 mg tablet,delayed release (DR/EC) 10 mg PO ONCE 1 Days Qty: 2 0RF Rx Instructions: take 2 tabs at noon the day before your colonoscopy polyethylene glycol 3350 [Miralax] 17 gram/dose powder 238 g PO ONCE Qty: 238 0RF Rx Instructions: As directed by gastroenterology department at [facility] Referrals: Cecelia Ford MD [Primary Care Provider] - 3 days Interventions: ED Discharge Assessment Last Done: 02/01/22 10:02 Discharge Date/Time: 02/01/22 10:02
== END 2022-02-01 10:02 | disposition home or self-care (01) ==
PROVIDERS: Emergency Provider Emergency Medicine; PCP Internal Medicine
DX: L03.221 Cellulitis of neck (principal)
CPT/HCPCS: 99283

== ENCOUNTER 2022-05-26 06:44 | Emergency (ER) | payer MEDICARE, MEDICAID, SELFPAY ==
[2022-05-26 06:49] VITALS: BP 148/67; PULSE 87; RESP 16; TEMP 36.7; O2SAT 95; BMI 35.6
--- NOTE | 2022-05-26 08:28 | ED.SKABFB ---
HPI - Skin/Abscess/Foreign Bdy General Chief complaint: Skin/Abscess/Foreign Body Stated complaint: Cyst Time Seen by Provider: 05/26/22 08:18 Source: patient Mode of arrival: ambulatory History of Present Illness HPI narrative: 56-year-old male with a past medical history PTSD, hypertension, presenting to the ED complaining of painful red cyst to right posterior thigh x few days. If area has been growing. Denies drainage from area, fever, chills, injury MD complaint: abscess/boil Related Data Home Medications Medication Instructions Recorded Confirmed fluvoxamine 100 mg tablet 100 mg PO BID 08/07/21 Previous Rx's Medication Instructions Recorded bisacodyl 5 mg tablet,delayed 10 mg PO ONCE 1 day #2 tabs 08/07/21 release (Dulcolax (bisacodyl)) polyethylene glycol 3350 17 238 g PO ONCE #238 grams 08/07/21 gram/dose oral powder (Miralax) naproxen 500 mg tablet (Naprosyn) 500 mg PO BID PRN PAIN #20 tabs 02/01/22 sulfamethoxazole 800 1 tab PO BID #14 tabs 02/01/22 mg-trimethoprim 160 mg tablet (Bactrim DS) doxycycline hyclate 100 mg tablet 100 mg PO BID 7 days #14 tabs 05/26/22 mupirocin 2 % topical ointment 1 appl topical TID 7 days #22 grams 05/26/22 Allergies Allergy/AdvReac Type Severity Reaction Status Date / Time amoxicillin [AMOXICILLIN] Allergy Unknown HIVES Verified 08/07/21 13:08 Review of Systems Review of Systems: Constitutional: No Fever, No Chills ENT/Mouth: No Ear Pain, No Nasal Congestion, No sore throat, No Rhinorrhea, No Swallowing Difficulty Cardiovascular: No Chest Pain, No SOB Respiratory: No Cough, No Sputum, No Wheezing Gastrointestinal: No Nausea, No Vomiting, No Diarrhea, No Constipation, No Abdominal pain Genitourinary: No Dysuria,No Hematuria, No Flank Pain Musculoskeletal: No joint pain, No Myalgias, No Joint Swelling Skin: + Skin Lesions, No rash Neuro: No Weakness, No Numbness, No Paresthesias Yes all other systems are reviewed and are negative Constitutional: Constitutional: Reports as per [facility] Past Medical History Attestation statement: The following information was validated with the patient. Medical History HTN (hypertension) PTSD (post-traumatic stress disorder) Social History Social History Substance Use Type: Marijuana Advance Directives: Yes Advance Directives Information Provided: Yes Advance Directives on File: No Physical Exam Vital Signs: Vital Signs: Last Vital Signs Temp 98.1 F 05/26/22 06:49 Pulse 87 05/26/22 06:49 Resp 16 05/26/22 06:49 BP 148/67 H 05/26/22 06:49 Pulse Ox 95 05/26/22 06:49 O2 Del Method 05/26/22 06:49 BMI result Body Mass Index 35.6 Const: General: cooperative, healthy appearing and no acute distress Orientation/consciousness: patient oriented x3 Limitations: no limitations HEENT: Head: Yes normal to inspection and Yes atraumatic Ears: hearing grossly normal bilaterally General nose exam: Normal external nose present Face and sinus: Yes normal facial exam Eyes: General: appearance normal, both eyes and all related structures EOM: EOMs intact bilaterally Neck: Neck: Yes normal visual inspection and Yes no meningeal signs Resp: Effort & Inspection: normal respiratory effort and no respiratory distress Cardio: Rate: regular rate Skin: Other: + erythematous indurated abscess noted to right posterior upper thigh with noted small pustules. No fluctuance, no streaking, no warmth Rashes: no rashes Neuro: General: patient oriented x3, tone normal and no meningeal signs Gait exam (Neuro): Normal gait present Extrem: General: Yes normal to inspection Medical Decision Making Medical Decision Making MDM Narrative: 56-year-old male with a past medical history PTSD, hypertension, presenting to the ED complaining of painful red cyst to right posterior thigh x few days. On exam vital signs stable, NAD, nontoxic appearing, physical exam as noted above with indurated abscess/folliculitis. Area does not need I and D at this time. Low suspicion for deeper infection/osteo Plan: P.o. antibiotics, topical mupirocin, PCP follow-up Results discussed with patient including worrisome signs and symptoms and strict return precautions, and when to return to the emergency department. They verbalized understanding and feel safe for discharge at this time. Differential Diagnosis Differential Diagnoses: The differential diagnosis associated with the presentation includes as above External Record Review External record reviewed: Outpatient record Prescription Management I considered prescription management with: Antibiotic Chronic Conditions Patient?s care impacted by: Hypertension Discharge Plan Discharge Clinical Impression: Cellulitis, Abscess of skin or subcutaneous tissue Patient Disposition: Home, Self-Care Instructions: Cellulitis (ED), Abscess (ED), Warm Compress or Soak (ED) Additional Instructions: You have an indurated abscess to your thigh that is infected. Doxycycline is an antibiotic please take as prescribed. In addition apply topical mupirocin which is topical antibiotic cream. If redness is passing line created in the emergency department please return to the ED If area begins to drain, turn to rivera, you have fever or chills return to the ED Prescriptions: New doxycycline hyclate 100 mg tablet 100 mg PO BID 7 Days Qty: 14 0RF mupirocin 2 % ointment 1 appl topical TID 7 Days Qty: 22 0RF No Action naproxen [Naprosyn] 500 mg tablet 500 mg PO BID PRN (Reason: PAIN) Qty: 20 0RF sulfamethoxazole-trimethoprim [Bactrim DS] 800-160 mg tablet 1 tab PO BID Qty: 14 0RF fluvoxamine 100 mg tablet 100 mg PO BID bisacodyl [Dulcolax (bisacodyl)] 5 mg tablet,delayed release (DR/EC) 10 mg PO ONCE 1 Days Qty: 2 0RF Rx Instructions: take 2 tabs at noon the day before your colonoscopy polyethylene glycol 3350 [Miralax] 17 gram/dose powder 238 g PO ONCE Qty: 238 0RF Rx Instructions: As directed by gastroenterology department at [facility] Referrals: ED Physician,Generic [Emergency Provider] - Physician,None [Primary Care Provider] -
== END 2022-05-26 09:04 | disposition home or self-care (01) ==
PROVIDERS: Emergency Provider Emergency Medicine
DX: L02.415 Cutaneous abscess of right lower limb (principal); Z79.899 Other long term (current) drug therapy
CPT/HCPCS: 99282; 99283

== ENCOUNTER 2022-08-11 07:30 | Emergency (ER) | payer MEDICARE, MEDICAID, SELFPAY ==
[2022-08-11 07:37] VITALS: BP 162/91; PULSE 87; RESP 16; TEMP 36.6; O2SAT 95; BMI 35.7
--- NOTE | 2022-08-11 08:41 | ED.SKABFB ---
HPI - Skin/Abscess/Foreign Bdy General Chief complaint: Skin/Abscess/Foreign Body Stated complaint: personal issue Time Seen by Provider: 08/11/22 08:38 Source: patient Mode of arrival: ambulatory Limitations: no limitations History of Present Illness HPI narrative: scrotal swelling and pain. patient is not a diabetic, no fever. MD complaint: abscess/boil Onset (ago): day(s) Related Data Home Medications Medication Instructions Recorded Confirmed fluvoxamine 100 mg tablet 100 mg PO BID 08/07/21 Previous Rx's Medication Instructions Recorded bisacodyl 5 mg tablet,delayed 10 mg PO ONCE 1 day #2 tabs 08/07/21 release (Dulcolax (bisacodyl)) polyethylene glycol 3350 17 238 g PO ONCE #238 grams 08/07/21 gram/dose oral powder (Miralax) naproxen 500 mg tablet (Naprosyn) 500 mg PO BID PRN PAIN #20 tabs 02/01/22 sulfamethoxazole 800 1 tab PO BID #14 tabs 02/01/22 mg-trimethoprim 160 mg tablet (Bactrim DS) doxycycline hyclate 100 mg tablet 100 mg PO BID 7 days #14 tabs 05/26/22 mupirocin 2 % topical ointment 1 appl topical TID 7 days #22 grams 05/26/22 cephalexin 500 mg capsule 500 mg PO Q6H 10 days #40 caps 08/11/22 doxycycline hyclate 100 mg capsule 100 mg PO BID #20 caps 08/11/22 Allergies Allergy/AdvReac Type Severity Reaction Status Date / Time amoxicillin [AMOXICILLIN] Allergy Unknown HIVES Verified 08/11/22 07:41 Review of Systems Neurologic: Denies Sensory deficit (Neuro) [facility] Past Medical History Medical History HTN (hypertension) PTSD (post-traumatic stress disorder) Social History Social History Substance Use Type: Marijuana Advance Directives: No Advance Directives Information Provided: Yes Physical Exam Vital Signs: Vital Signs: Last Vital Signs Temp 97.8 F 08/11/22 07:37 Pulse 77 08/11/22 08:58 Resp 14 08/11/22 08:58 BP 151/95 H 08/11/22 08:58 Pulse Ox 95 08/11/22 07:37 O2 Del Method Room Air 08/11/22 07:37 BMI result Body Mass Index 35.7 Const: General: healthy appearing Nutritional Appearance: average body habitus Orientation/consciousness: oriented to person and patient oriented x3 Limitations: no limitations HEENT: Head: Yes normal to inspection Ears: external ears normal General nose exam: Normal external nose present Mouth: Normal oral and palatal mucosa present and oropharynx normal Throat: Yes posterior oropharynx normal Eyes: General: appearance normal, both eyes and all related structures Neck: Other: supple Neck: Yes normal visual inspection Chest: Chest palpation & inspection: normal inspection of the chest Resp: Auscultation: clear to auscultation bilaterally Cardio: Jugular venous distension: no JVD Rate: regular rate Rhythm: regular rhythm Heart sounds: S1 normal heart sound present and S2 normal heart sound present GI: Inspection: Yes normal to inspection Palpation (GI): Soft to palpation, nontender and No hepatosplenomegaly present Auscultation: normal bowel sounds : General: Yes no CVA tenderness Back/Spine/Pelvis: Back: no CVA tenderness Skin: Other: left groin/scrotal with hard induration with erythema, area of scab about 3 cm in circumfrence Neuro: General: oriented to person and patient oriented x3 Cranial nerves: Yes CN's II-XII intact bilaterally Motor exam (neuro): 5/5 motor strength present throughout Sensory Exam: No Sensory deficit (Neuro) Extrem: General: Yes normal to inspection Psych: Appearance: grossly normal Course Reevaluation(s) Reevaluation #1: no abscess on bedside US will place on doxy and keflex and warm soaks Time: 09:02 Medical Decision Making Differential Diagnosis Differential Diagnoses: The differential diagnosis associated with the presentation includes (abscess, cellulitis, aurelia gangrene, furuncle) Independent Interpretation I performed an independent interpretation of an: Ultrasound (bedside US shows no fluid or abscess) Tests considered The following testing was considered but not selected: I considered obtaining cbc and chemistry but no history of diabetes, and not febrile Discharge Plan Discharge Clinical Impression: Cellulitis Patient Disposition: Home, Self-Care Instructions: Cellulitis (ED), Warm Compress or Soak (ED) Prescriptions: New doxycycline hyclate 100 mg capsule 100 mg PO BID Qty: 20 0RF cephalexin 500 mg capsule 500 mg PO Q6H 10 Days Qty: 40 0RF No Action doxycycline hyclate 100 mg tablet 100 mg PO BID 7 Days Qty: 14 0RF mupirocin 2 % ointment 1 appl topical TID 7 Days Qty: 22 0RF naproxen [Naprosyn] 500 mg tablet 500 mg PO BID PRN (Reason: PAIN) Qty: 20 0RF sulfamethoxazole-trimethoprim [Bactrim DS] 800-160 mg tablet 1 tab PO BID Qty: 14 0RF fluvoxamine 100 mg tablet 100 mg PO BID bisacodyl [Dulcolax (bisacodyl)] 5 mg tablet,delayed release (DR/EC) 10 mg PO ONCE 1 Days Qty: 2 0RF Rx Instructions: take 2 tabs at noon the day before your colonoscopy polyethylene glycol 3350 [Miralax] 17 gram/dose powder 238 g PO ONCE Qty: 238 0RF Rx Instructions: As directed by gastroenterology department at [facility] Referrals: Physician,Unknown J [Primary Care Provider] - 5 days
[2022-08-11 08:58] VITALS: BP 151/95; PULSE 77; RESP 14
[2022-08-11] MEDS: Doxycycline Monohydrate 100 MG CAPSULE PO (09:07)
[2022-08-11] MEDS: cephALEXin 500 MG CAPSULE PO (09:07)
== END 2022-08-11 09:22 | disposition home or self-care (01) ==
PROVIDERS: Emergency Provider Emergency Medicine
DX: L03.90 Cellulitis, unspecified (principal); I10 Essential (primary) hypertension; Z79.899 Other long term (current) drug therapy
CPT/HCPCS: 99283

== ENCOUNTER 2022-10-15 09:21 | Emergency (ER) | payer MEDICARE, MEDICAID, SELFPAY ==
--- NOTE | ~2022-10-15 | XR_ITS ---
EXAMINATION: XR CHEST CLINICAL INFORMATION: Cough. COMPARISON: 05/09/2016 TECHNIQUE: 2 views of the chest were obtained. FINDINGS: The lungs are well expanded. No focal consolidation. No pleural effusion. Cardiac silhouette is unchanged. XR/XR chest 2V IMPRESSION: No acute abnormality.
[2022-10-15 09:53] VITALS: BP 138/88; PULSE 96; RESP 18; TEMP 36.4; O2SAT 96; BMI 34.3
--- NOTE | 2022-10-15 10:08 | ED.URI ---
HPI - URI/Sore Throat General Chief Complaint: Upper Respiratory Symptoms Stated Complaint: scratchy throat, sweating Time Seen by Provider: 10/15/22 10:08 Source: patient, RN notes reviewed and old records reviewed Mode of arrival: ambulatory History of Present Illness HPI Narrative: 57 yo male with a history of PTSD, HTN, anxiety, and depression presents to ED for evaluation of cough, cold sweats, and chest congestion x 3 days. Reports developing cold sweats on Thursday which has since resolved, but now reports chest congestion and productive cough of white phlegm, watery stools, & mild headache. Denies recent sick contacts, recent travel, fever, fatigue, dizziness, throat pain, runny nose, nasal congestion, ear pain or discharge, SOB, chest pain, abd pain, N/V, dysuria, muscle aches. MD elicited complaint: cough Onset (ago): day(s) (3) Consistency: constant Severity: mild Description of mucous: other (white) Able to tolerate fluids by mouth: Yes Exacerbating factors: nothing Relieving factors: nothing Related Data Home Medications Medication Instructions Recorded Confirmed fluvoxamine 100 mg tablet 100 mg PO BID 08/07/21 Previous Rx's Medication Instructions Recorded bisacodyl 5 mg tablet,delayed 10 mg PO ONCE 1 day #2 tabs 08/07/21 release (Dulcolax (bisacodyl)) polyethylene glycol 3350 17 238 g PO ONCE #238 grams 08/07/21 gram/dose oral powder (Miralax) naproxen 500 mg tablet (Naprosyn) 500 mg PO BID PRN PAIN #20 tabs 02/01/22 sulfamethoxazole 800 1 tab PO BID #14 tabs 02/01/22 mg-trimethoprim 160 mg tablet (Bactrim DS) doxycycline hyclate 100 mg tablet 100 mg PO BID 7 days #14 tabs 05/26/22 mupirocin 2 % topical ointment 1 appl topical TID 7 days #22 grams 05/26/22 cephalexin 500 mg capsule 500 mg PO Q6H 10 days #40 caps 08/11/22 doxycycline hyclate 100 mg capsule 100 mg PO BID #20 caps 08/11/22 benzonatate 100 mg capsule 100 mg PO TID PRN cough #14 caps 10/15/22 fluticasone propionate 50 2 spray intranasal DAILY #16 grams 10/15/22 mcg/actuation nasal spray,suspension (Flonase Allergy Relief) Allergies Allergy/AdvReac Type Severity Reaction Status Date / Time amoxicillin [AMOXICILLIN] Allergy Unknown HIVES Verified 10/15/22 09:53 Review of Systems Review of Systems: Constitutional: No Fever, + Chills, No Fatigue, No Malaise ENT/Mouth: No Ear Pain, No Nasal Congestion, No Sinus Pain, No Hoarseness, No sore throat, No Rhinorrhea, No Swallowing Difficulty Eyes: No Redness, No Foreign Body, No Discharge, No Vision Changes Cardiovascular: No Chest Pain, No SOB, No Dyspnea on Exertion, No Orthopnea, No Edema, No Palpitations Respiratory: +Cough, + white Sputum, No Wheezing, No Smoke Exposure, No Dyspnea Gastrointestinal: No Nausea, No Vomiting, No Diarrhea, No Constipation, No Abdominal pain Musculoskeletal: No joint pain, No Myalgias, No Joint Swelling Skin: No Skin Lesions, No rash Neuro: No Weakness, No Numbness, No Paresthesias, + Headache Yes all other systems are reviewed and are negative Constitutional: Constitutional: Reports as per [facility] Past Medical History Attestation statement: The following information was validated with the patient. Source: nursing notes reviewed and other (Patient) Medical History HTN (hypertension) PTSD (post-traumatic stress disorder) Social History Social History Substance Use Type: Marijuana Advance Directives: No Advance Directives Information Provided: Yes Physical Exam Vital Signs: Vital Signs: Last Vital Signs Temp 97.5 F 10/15/22 09:53 Pulse 96 10/15/22 09:53 Resp 18 10/15/22 09:53 BP 138/88 10/15/22 09:53 Pulse Ox 96 10/15/22 09:53 BMI result Body Mass Index 34.3 Const: General: cooperative, healthy appearing, comfortable, no acute distress, alert and awake Orientation/consciousness: patient oriented x3 Limitations: no limitations HEENT: Head: Yes normocephalic and Yes atraumatic Ears: hearing grossly normal bilaterally, external ears normal and TM's normal bilaterally General nose exam: Normal external nose present Face and sinus: Yes normal facial exam Mouth: Normal oral and palatal mucosa present, moist mucous membranes and no drooling Throat: Yes posterior oropharynx normal, Yes tonsils normal and Yes uvula midline Eyes: General: appearance normal, both eyes and all related structures Conjunctivae: conjunctivae normal Sclerae: sclerae normal Pupils: Equal, round and reactive pupils present EOM: EOMs intact bilaterally Neck: Neck: Yes normal visual inspection, Yes full ROM and Yes no lymphadenopathy Resp: Effort & Inspection: normal respiratory effort and able to speak in complete sentences Auscultation: clear to auscultation bilaterally, no rales, no rhonchi and no wheezes Cardio: Rate: regular rate Rhythm: regular rhythm Heart sounds: S1 normal heart sound present and S2 normal heart sound present GI: Inspection: Yes normal to inspection Palpation (GI): Soft to palpation and nontender Skin: General skin exam: no rashes or lesions noted Rashes: no rashes Wounds: no wounds Neuro: General: patient oriented x3 Cranial nerves: Yes Equal, round and reactive pupils present Gait exam (Neuro): Normal gait present Extrem: General: Yes normal to inspection, Yes no clubbing, cyanosis or edema and Yes no pedal edema Course Course Course Narrative: 1149--COVID and Flu are negative. XR chest 2V IMPRESSION: No acute abnormality. Results discussed with patient including worrisome signs and symptoms and strict return precautions, and when to return to the emergency department. They verbalized understanding and feel safe for discharge at this time. Medical Decision Making Medical Decision Making [facility] Narrative: 57 yo male with a history of PTSD, HTN, anxiety, and depression presents to ED for evaluation of cough, cold sweats, and chest congestion x 3 days. On exam nontoxic appearing, NAD. Vitals signs are stable. Lungs CTA, no pedal edema. Concern for viral illness including COVID-19 versus influenza vs bronchitis or pneumonia vs pharyngitis. Low concern for ACS, PE, dissection, DVT, CHF Plan: COVID/influenza testing, CXR Differential Diagnosis Differential Diagnoses: The differential diagnosis associated with the presentation includes Admission/Observation Consideration of admission/observation: Escalation of care including admission/observation considered Lab Data [facility] Lab Attestation statement: I reviewed the patient's lab results. Labs: Lab Results 10/15/22 10/15/22 Range/Units 10:18 10:18 COVID-19 (YOHAN) Negative (Negative) COVID-19 Clin Com See Note Influenza Type A (CLEMENTINE) Negative (Negative) Influenza Type B (CLEMENTINE) Negative (Negative) Influenza A & B Note See Note Radiology Impression Discussion of test interpretation with radiology: I have reviewed the radiologist's reading. External Record Review External record reviewed: Inpatient record, Office record, Outpatient record, Prior outpatient labs, Prior outpatient radiology, Primary care record and Outside ED record Tests considered The following testing was considered but not selected: As above Prescription Management I considered prescription management with: Pain Medication, Antiviral and Antibiotic Discharge Plan Discharge Clinical Impression: Upper respiratory infection Patient Disposition: Home, Self-Care Instructions: Viral Syndrome (ED) Additional Instructions: You tested negative for COVID and flu Your x-ray is unremarkable, no pneumonia Tessalon Perles for cough, take as needed Flonase is a prescription nasal decongestant rest. Stay hydrated. Take Tylenol Motrin as needed Prescriptions: New benzonatate 100 mg capsule 100 mg PO TID PRN (Reason: cough) Qty: 14 0RF fluticasone propionate [Flonase Allergy Relief] 50 mcg/actuation spray,suspension 2 spray intranasal DAILY Qty: 16 0RF Rx Instructions: administer into each nostril No Action doxycycline hyclate 100 mg tablet 100 mg PO BID 7 Days Qty: 14 0RF mupirocin 2 % ointment 1 appl topical TID 7 Days Qty: 22 0RF naproxen [Naprosyn] 500 mg tablet 500 mg PO BID PRN (Reason: PAIN) Qty: 20 0RF sulfamethoxazole-trimethoprim [Bactrim DS] 800-160 mg tablet 1 tab PO BID Qty: 14 0RF doxycycline hyclate 100 mg capsule 100 mg PO BID Qty: 20 0RF cephalexin 500 mg capsule 500 mg PO Q6H 10 Days Qty: 40 0RF fluvoxamine 100 mg tablet 100 mg PO BID bisacodyl [Dulcolax (bisacodyl)] 5 mg tablet,delayed release (DR/EC) 10 mg PO ONCE 1 Days Qty: 2 0RF Rx Instructions: take 2 tabs at noon the day before your colonoscopy polyethylene glycol 3350 [Miralax] 17 gram/dose powder 238 g PO ONCE Qty: 238 0RF Rx Instructions: As directed by gastroenterology department at [facility] Referrals: [facility] [Primary Care Provider] - 5 days Interventions: ED Discharge Assessment Last Done: 10/15/22 12:30 Discharge Date/Time: 10/15/22 12:31
[2022-10-15 10:52] LABS: COVID-19 Test Negative (Negative); IDNOW Serial# 08D9AD1C
[2022-10-15 10:53] LABS: IDNOW Serial# 9DB6401D; Influenza A Negative (Negative); Influenza B2 Negative (Negative)
== END 2022-10-15 12:31 | disposition home or self-care (01) ==
PROVIDERS: Physician Assistant; Emergency Provider Emergency Medicine
DX: J06.9 Acute upper respiratory infection, unspecified (principal); R05.9 Cough, unspecified; Z20.822 Contact with and (suspected) exposure to COVID-19; I10 Essential (primary) hypertension
CPT/HCPCS: 71046; 87502; 87635; 99283

== ENCOUNTER 2024-06-29 17:54 | Emergency (ER) | payer MEDICARE, MEDICAID, SELFPAY ==
--- NOTE | ~2024-06-29 | XR_ITS ---
CLINICAL HISTORY: 3rd finger, trauma Radiographs of the left 3rd digit, 3 views Comparison: None Findings: No fracture or dislocation. Severe degenerative change of the distal interphalangeal joints. Cortical thickening at the volar aspect of the 3rd middle phalanx seen on the lateral view. Bone mineralization is normal. Soft tissue swelling/laceration. Impression: No fracture. This document has been electronically signed by: Alessandra Natarajan MD on 06/29/2024 18:44:30
[2024-06-29 17:59] VITALS: BP 149/104; PULSE 86; RESP 19; TEMP 36.6; O2SAT 98; BMI 33.8
--- NOTE | 2024-06-29 17:59 | ED_ITS ---
HPI - General Adult General Chief complaint: Wound/Laceration Stated complaint: LT middle finger injury Time Seen by Provider: 06/29/24 19:17 History of Present Illness HPI narrative: 58-year-old male presents for evaluation of left 3rd finger injury. The patient reports he was being treated for an infection to his left 3rd fingertip. He is on his 3rd day of doxycycline; he had cut the finger and was subsequently picking at it. Today he accidentally slammed his affected finger in a door. Tetanus vaccine up-to-date. No fevers. Related Data Home Medications ?Medication ?Instructions ?Recorded ?Confirmed fluvoxamine 100 mg tablet 100 mg PO BID 08/07/21 Previous Rx's ?Medication ?Instructions ?Recorded bisacodyl 5 mg tablet,delayed 10 mg (2 x 5 mg) PO ONCE 1 day #2 08/07/21 release (Dulcolax (bisacodyl)) tabs polyethylene glycol 3350 17 238 g PO ONCE #238 grams 08/07/21 gram/dose oral powder (Miralax) naproxen 500 mg tablet (Naprosyn) 500 mg PO BID PRN PAIN #20 tabs 02/01/22 sulfamethoxazole 800 1 tab PO BID #14 tabs 02/01/22 mg-trimethoprim 160 mg tablet (Bactrim DS) doxycycline hyclate 100 mg tablet 100 mg PO BID 7 days #14 tabs 05/26/22 mupirocin 2 % topical ointment 1 appl topical TID 7 days #22 grams 05/26/22 cephalexin 500 mg capsule 500 mg PO Q6H 10 days #40 caps 08/11/22 doxycycline hyclate 100 mg capsule 100 mg PO BID #20 caps 08/11/22 benzonatate 100 mg capsule 100 mg PO TID PRN cough #14 caps 10/15/22 fluticasone propionate 50 2 spray intranasal DAILY #16 grams 10/15/22 mcg/actuation nasal spray,suspension (Flonase Allergy Relief) oxycodone 5 mg tablet 5 mg PO Q6H PRN pain 2 days #8 tabs 06/29/24 Allergies Allergy/AdvReac Type Severity Reaction Status Date / Time amoxicillin [AMOXICILLIN] Allergy Unknown HIVES Verified 06/29/24 18:00 Review of Systems Review of Systems: Yes all other systems are reviewed and are negative Constitutional: Constitutional: Denies fatigue and Denies fever(s) Musculoskeletal: Musculoskeletal: Reports arthralgias and Reports joint swelling Endocrine: Endocrine: Denies fatigue PMFSH Past Medical History Attestation statement: The following information was validated with the patient. Medical History HTN (hypertension) PTSD (post-traumatic stress disorder) Social History Social History Substance Use Type: Marijuana Advance Directives: No Advance Directives Information Provided: Yes Do you have a plan to hurt others: No Plan Physical Exam ED Vital Signs: Vital Signs - 24 hr 06/29/24 17:59 Temperature 98 F Pulse Rate 86 Respiratory Rate 19 Blood Pressure 149/104 H Pulse Oximetry 98 Oxygen Delivery Method Room Air BMI result Body Mass Index 33.8 Const Other: Alert Orientation/consciousness: patient oriented x3 Resp Effort & Inspection: normal respiratory effort Cardio Other: normal peripheral perfusion Skin Other: warm dry no rash Neuro General: patient oriented x3, gait normal, no focal motor deficits and CN's II- XI intact bilaterally Extrem Other: patient able to flex and extend from MCP, PIP, minimal at DIP. There is a small wound that is scabbed over along medial aspect of the right 3rd digit at the DIP, the joint is erythematous and contused, suspicion for concurrent paronychia Psych Other: cooperative Course Course Course Narrative: RME, this is a rapid medical exam performed by [employer] please refer to primary provider for complete H&P- 58-year-old male presents for evaluation of left 3rd finger injury. The patient reports he was being treated for an infection to his left 3rd fingertip. He is on his 3rd day of doxycycline. Today he accidentally slammed his affected finger in a door. Plan for x-ray Procedures Abscess I/D Site: hand ( paronychia right 3rd digit) Side (if applicable): right Sedation/analgesia: none Local Anesthetic: lidocaine 1% and with epi Amount of anesthesia used (mL): 5 Technique: incised with blade and ultrasound guided Amount of fluid expressed (mL): 1 Sent for culture/gram staining?: No Irrigation: Yes Packing used?: none Medical Decision Making Medical Decision Making [facility] Narrative: 58-year-old male presents for evaluation of left 3rd finger injury. The patient reports he was being treated for an infection to his left 3rd fingertip. He is on his 3rd day of doxycycline; he had cut the finger and was subsequently picking at it. Today he accidentally slammed his affected finger in a door. Tetanus vaccine up-to-date. No fevers. No relevant chronic issues History: Per patient I have considered the following differential diagnoses: Fracture, dislocation, paronychia, cellulitis, purulent cellulitis, felon, tenosynovitis Plan: There was concern for paronychia, we will I and D. X-ray obtained from triage there was no fracture or dislocation. I do not have suspicion for tenosynovitis given he is able to flex and extend at each joint. He is already on antibiotics, tetanus up-to-date I have independently reviewed the following tests: X-ray right hand:Findings: No fracture or dislocation. Severe degenerative change of the distal interphalangeal joints. Cortical thickening at the volar aspect of the 3rd middle phalanx seen on the lateral view. Bone mineralization is normal. Soft tissue swelling/laceration. Impression: No fracture. Discharge Plan Discharge Clinical Impression: Paronychia of finger of right hand, Contusion of right middle finger Patient Disposition: Home, Self-Care Instructions: Paronychia (ED), Contusion in Adults (ED) Additional Instructions: You had a paronychia that was drained. See home care instructions. Keep the area clean and dry. Be sure to complete the course of antibiotics you were prescribed. Use the oxycodone as needed for further pain. Follow up with your primary care provider as needed. The x-ray of the hand was negative for fracture or dislocation. Prescriptions: New oxycodone 5 mg tablet 5 mg PO Q6H PRN (Reason: pain) 2 Days Qty: 8 0RF Rx Instructions: Partial Fill upon patient request. No Action doxycycline hyclate 100 mg tablet 100 mg PO BID 7 Days Qty: 14 0RF mupirocin 2 % ointment 1 appl topical TID 7 Days Qty: 22 0RF naproxen [Naprosyn] 500 mg tablet 500 mg PO BID PRN (Reason: PAIN) Qty: 20 0RF sulfamethoxazole-trimethoprim [Bactrim DS] 800-160 mg tablet 1 tab PO BID Qty: 14 0RF doxycycline hyclate 100 mg capsule 100 mg PO BID Qty: 20 0RF cephalexin 500 mg capsule 500 mg PO Q6H 10 Days Qty: 40 0RF benzonatate 100 mg capsule 100 mg PO TID PRN (Reason: cough) Qty: 14 0RF fluticasone propionate [Flonase Allergy Relief] 50 mcg/actuation spray,suspension 2 spray intranasal DAILY Qty: 16 0RF Rx Instructions: administer into each nostril fluvoxamine 100 mg tablet 100 mg PO BID bisacodyl [Dulcolax (bisacodyl)] 5 mg tablet,delayed release (DR/EC) 10 mg PO ONCE 1 Days Qty: 2 0RF Rx Instructions: take 2 tabs at noon the day before your colonoscopy polyethylene glycol 3350 [Miralax] 17 gram/dose powder 238 g PO ONCE Qty: 238 0RF Rx Instructions: As directed by gastroenterology department at [facility] Print Language: Yakut
[2024-06-29 21:01] VITALS: BP 126/77; PULSE 88; RESP 17; TEMP 37; O2SAT 98
== END 2024-06-29 21:03 | disposition home or self-care (01) ==
PROVIDERS: Emergency Provider Internal Medicine
DX: L03.012 Cellulitis of left finger (principal); S60.032A Contusion of left middle finger without damage to nail, initial encounter; W23.1XXA Caught, crushed, jammed, or pinched between stationary objects, initial encounter; Y93.89 Activity, other specified; Y92.810 Car as the place of occurrence of the external cause; Y99.9 Unspecified external cause status
CPT/HCPCS: 10060; 73140; 99283; 99284

== ENCOUNTER → 2024-06-29 17:59 | Outpatient (BNV) | payer MEDICARE, MEDICAID, SELFPAY | PROVIDERS: Visit Provider Radiology Diagnostic Radiology | DX: S60.032A Contusion of left middle finger without damage to nail, initial encounter (principal) | CPT/HCPCS: 73140 ==